=== PATIENT | male | born 1935 | race Caucasian/White ===

== ENCOUNTER 2017-09-05 16:02 | Emergency (ER) | payer MEDICARE, OTHER, SELFPAY ==
[2017-09-05 16:03] VITALS: BP 126/93; PULSE 141; RESP 32; TEMP 37.7; O2SAT 96; BMI 21.7
--- NOTE | 2017-09-05 16:10 | XR_ITS ---
XR chest portable HISTORY: Shortness of air ITS.REASON: soa ORDERING PHYSICIAN: Irma Lopez MD PATIENT AGE: 82 years COMPARISON: None available FINDINGS: The exam is over penetrated with central aspect of the lungs not adequately evaluated. Examination may be repeated at no additional charge if clinically warranted. The peripheral lung castaneda are unremarkable. The heart size is unremarkable and no acute bony anomalies are apparent. IMPRESSION: Limited exam with overpenetration of the central lung castaneda as described above. Recommend repeat exam if the patient has not had a follow-up elsewhere.
--- NOTE | 2017-09-05 16:23 | [facility].EDSOB ---
ED Disposition Clinical Impression: Leucocytosis, Diarrhea, Tachycardia, Dehydration, UTI (urinary tract infection) Disposition: Xfer Short-Term Hosp Condition on Discharge: Fair Additional Instructions: Discussed with the patient and his daughter the need for admission multiple time, seems to have hard time understanding. I asked the daughter for assistance. - Critical Care Critical Care Time: No Attestation: On , the high probability of a clinically significant, sudden or life threatening deterioration of the following system(s) required my full and direct attention, intervention and personal management. The time I documented below is in addition to time spent performing reported procedures but includes the following listed in this critical care notation. Medical Decision Making - Medical Records Medical records reviewed: Yes: I reviewed the patient's medical records. Vital Signs: 09/05/17 16:03 09/05/17 17:05 Temperature 99.8 F H Temperature Source Oral Pulse Rate 130 H Pulse Rate [Right Brachial] 141 H Respiratory Rate 32 H Blood Pressure [Right Arm] 126/93 Blood Pressure Mean [Right Arm] 104 Blood Pressure Source [Right Arm] Automatic Cuff 02 Sat by Pulse Oximetry 96 98 Oxygen Delivery Method Room Air Nasal Cannula Oxygen Flow Rate (LPM) 2 - Lab Data Lab Results 09/05/17 16:13: Specimen Source Right radial, O2 % Room air, ABG pH 7.48 H, ABG pCO2 28.7 L, ABG pO2 63.2 L, ABG HCO3 20.7 L, ABG Total CO2 21.6 L, ABG O2 Saturation 94, ABG Base Excess -2.9 L, Usman Test Acceptable 09/05/17 16:15: WBC 19.2 H, RBC 4.48 L, Hgb 14.8, Hct 45.9, MCV 102.5 H, MCH 33.1 H, MCHC 32.3, RDW 12.7, Plt Count 289, MPV 7.7, Neut % (Auto) 90.9 H, Lymph % (Auto) 3.4 L, [place] % (Auto) 4.0, Eos % (Auto) 1.5, Baso % (Auto) 0.3, Neut # (Auto) 17.4 H, Lymph # (Auto) 0.6 L, [place] # (Auto) 0.8, Eos # (Auto) 0.3, Baso # (Auto) 0.1, Total Counted 100, Neutrophils % (Manual) 91 H, Lymphocytes % (Manual) 4 L, Monocytes % (Manual) 2, Eosinophils % (Manual) 2, Basophils % (Manual) 1.0, Platelet Estimate Normal, Macrocytosis 1+ 09/05/17 16:15: Sodium 135 L, Potassium 4.3, Chloride 100, Carbon Dioxide 28, Anion Gap 11.3, BUN 18, Creatinine 0.93, Estimated Creat Clear 60, Estimated GFR 78, Est GFR ( Amer) 94, Glucose 136 H, Calcium 8.2 L, Total Bilirubin 0.6, AST 19, ALT 25, Alkaline Phosphatase 53, Total Creatine Kinase 44, CK-MB (CK-2) 0.6, CK-MB (CK-2) Rel Index 1.4, Troponin I 0.07 H, Total Protein 6.8, Albumin 3.6, Globulin 3.2, Albumin/Globulin Ratio 1.1 09/05/17 16:15: Lactic Acid 1.9 09/05/17 16:15: Influenza Type A Ag Negative, Influenza Type B Ag Negative 09/05/17 16:15: B-Natriuretic Peptide 32 09/05/17 16:15: Magnesium 1.6 09/05/17 19:03: Urine Color Yellow, Urine Appearance Cloudy, Urine pH 6.0, Ur Specific [place] <= 1.005, Urine Protein Negative, Urine Glucose (UA) Negative, Urine Ketones Negative, Urine Blood 2+, Urine Nitrate Positive, Urine Bilirubin Negative, Urine Urobilinogen 0.2, Ur Leukocyte Esterase 3+ A, Urine RBC 10-20, Urine WBC Tntc, Urine Bacteria 2+ Result diagrams: 09/05/17 16:15 09/05/17 16:15 Orders (Tests/Meds): ED MEDICATIONS Generic Name Dose Route Start Last Admin Trade Name Freq PRN Reason Stop Dose Admin Levofloxacin/Dextrose 750 mg in 150 mls @ 100 mls/hr 09/05/17 18:00 Levofloxacin 750mg/150ml Premix IV 10/05/17 17:59 Q24H [facility] Protocol Discontinued Medications Generic Name Dose Route Start Last Admin Trade Name Freq PRN Reason Stop Dose Admin Sodium Chloride 1,000 mls @ 999 mls/hr 09/05/17 16:30 09/05/17 16:32 Sod Chloride 0.9% 1000ml Bag IV 09/05/17 17:30 999 mls/hr .[id number] [facility] Administration ORDERS Category Date Time Status XR chest portable Stat Exams 09/05/17 16:10 Taken Diarrhea Panel, PCR Stat Lab 09/05/17 16:26 Ordered Blood Culture Stat Micro 09/05/17 16:13 Received Urine Culture Stat Micro 09/05/17 19:03 Received -
--- NOTE | 2017-09-05 16:27 | ED_ITS ---
ED Disposition Clinical Impression: Leucocytosis, Diarrhea, Tachycardia, Dehydration, UTI (urinary tract infection) Disposition: Xfer Short-Term Hosp Condition on Discharge: Fair Additional Instructions: Discussed with the patient and his daughter the need for admission multiple time , seems to have hard time understanding. I asked the daughter for assistance. - Critical Care Critical Care Time: No Attestation: On , the high probability of a clinically significant, sudden or life threatening deterioration of the following system(s) required my full and direct attention, intervention and personal management. The time I documented below is in addition to time spent performing reported procedures but includes the following listed in this critical care notation. Medical Decision Making - Medical Records Medical records reviewed: Yes: I reviewed the patient's medical records. Vital Signs: 09/05/17 16:03 09/05/17 17:05 Temperature 99.8 F H Temperature Source Oral Pulse Rate 130 H Pulse Rate [Right Brachial] 141 H Respiratory Rate 32 H Blood Pressure [Right Arm] 126/93 Blood Pressure Mean [Right Arm] 104 Blood Pressure Source [Right Arm] Automatic Cuff 02 Sat by Pulse Oximetry 96 98 Oxygen Delivery Method Room Air Nasal Cannula Oxygen Flow Rate (LPM) 2 - Lab Data Lab Results 09/05/17 16:13: Specimen Source Right radial, O2 % Room air, ABG pH 7.48 H, ABG pCO2 28.7 L, ABG pO2 63.2 L, ABG HCO3 20.7 L, ABG Total CO2 21.6 L, ABG O2 Saturation 94, ABG Base Excess -2.9 L, Usman Test Acceptable 09/05/17 16:15: WBC 19.2 H, RBC 4.48 L, Hgb 14.8, Hct 45.9, MCV 102.5 H, MCH 33.1 H, MCHC 32.3, RDW 12.7, Plt Count 289, MPV 7.7, Neut % (Auto) 90.9 H, Lymph % (Auto) 3.4 L, [place] % (Auto) 4.0, Eos % (Auto) 1.5, Baso % (Auto) 0.3, Neut # (Auto) 17.4 H, Lymph # (Auto) 0.6 L, [place] # (Auto) 0.8, Eos # (Auto) 0.3 , Baso # (Auto) 0.1, Total Counted 100, Neutrophils % (Manual) 91 H, Lymphocytes % (Manual) 4 L, Monocytes % (Manual) 2, Eosinophils % (Manual) 2, Basophils % (Manual) 1.0, Platelet Estimate Normal, Macrocytosis 1+ 09/05/17 16:15: Sodium 135 L, Potassium 4.3, Chloride 100, Carbon Dioxide 28, Anion Gap 11.3, BUN 18, Creatinine 0.93, Estimated Creat Clear 60, Estimated GFR 78, Est GFR ( Amer) 94, Glucose 136 H, Calcium 8.2 L, Total Bilirubin 0.6, AST 19, ALT 25, Alkaline Phosphatase 53, Total Creatine Kinase 44 , CK-MB (CK-2) 0.6, CK-MB (CK-2) Rel Index 1.4, Troponin I 0.07 H, Total Protein 6.8, Albumin 3.6, Globulin 3.2, Albumin/Globulin Ratio 1.1 09/05/17 16:15: Lactic Acid 1.9 09/05/17 16:15: Influenza Type A Ag Negative, Influenza Type B Ag Negative 09/05/17 16:15: B-Natriuretic Peptide 32 09/05/17 16:15: Magnesium 1.6 09/05/17 19:03: Urine Color Yellow, Urine Appearance Cloudy, Urine pH 6.0, Ur Specific [place] <= 1.005, Urine Protein Negative, Urine Glucose (UA) Negative, Urine Ketones Negative, Urine Blood 2+, Urine Nitrate Positive, Urine Bilirubin Negative, Urine Urobilinogen 0.2, Ur Leukocyte Esterase 3+ A, Urine RBC 10-20, Urine WBC Tntc, Urine Bacteria 2+ Result diagrams: 09/05/17 16:15 09/05/17 16:15 Orders (Tests/Meds): ED MEDICATIONS Generic Name Dose Route Start Last Admin Trade Name Freq PRN Reason Stop Dose Admin Levofloxacin/Dextrose 750 mg in 150 mls @ 100 mls/hr 09/05/17 18:00 Levofloxacin 750mg/150ml Premix IV 10/05/17 17:59 Q24H [facility] Protocol Discontinued Medications
[2017-09-05 16:29] LABS: Basophils # 0.1 K/mm3 (0-0.2); Basophils % 0.3 % (0.1-2.0); Eosinophils # 0.3 K/mm3 (0.0-0.4); Eosinophils % 1.5 % (0.1-12.0); Hematocrit 45.9 % (42.0-52.0); Hemoglobin 14.8 g/dL (14.1-18.0); Lymphocytes # 0.6 K/mm3 (0.7-4.5); Lymphocytes % 3.4 K/mm3 (10-50); Mean Corpuscular HGB Conc 32.3 g/dL (31.8-35.4); Mean Corpuscular Hemoglobin 33.1 pg (27.0-31.2); Mean Corpuscular Volume 102.5 fl (80-94); Mean Platelet Volume 7.7 fl (7.4-10.4); Monocytes # 0.8 K/mm3 (0.1-1.0); Neutrophils # 17.4 K/mm3 (1.8-7.8); Neutrophils % 90.9 % (37.0-80.0); Platelet Count 289 K/mm3 (142-424); Red Blood Count 4.48 M/mm3 (4.60-6.20); Red Cell Distribution Width 12.7 % (11.5-17.5); White Blood Count 19.2 K/mm3 (4.8-10.8)
[2017-09-05 16:33] LABS: MANUAL DIFFERENTIAL MANUAL DIFFERENTIAL (MANUAL DIFF)
[2017-09-05 16:43] LABS: Lactic Acid 1.9 mmol/L (0.4-2.0)
[2017-09-05 17:05] VITALS: PULSE 120; PULSE 130; O2SAT 98
[2017-09-05 17:13] LABS: Alanine Aminotransferase 25 U/L (12-78); Albumin Level 3.6 gm/dL (3.4-5.0); Albumin/Globulin Ratio 1.1 (1.1-1.8); Alkaline Phosphatase 53 U/L (46-116); Anion Gap 11.3 mEq/L (5-15); Aspartate Amino Transferase 19 U/L (15-37); Bilirubin,Total 0.6 mg/dL (0.2-1.0); Blood Urea Nitrogen 18 mg/dL (7-18); CKMB Relative Index 1.4 U/L (0-4.0); Calcium 8.2 mg/dL (8.5-10.1); Carbon Dioxide 28 mmol/L (21.0-32.0); Chloride 100 mmol/L (98-107); Creatine Kinase 44 U/L (39-308); Creatine Kinase MB 0.6 mg/ml (0.0-3.6); Creatinine Clearance Estimated 60 mL/min (0-300); Creatinine,Serum 0.93 mg/dL (0.70-1.30); Estimated Glomerular Filt Rate 78 ml/min (>60); GFR (African American) 94 ML/MIN (>60); Globulin 3.2 gm/dl (1.3-3.2); Glucose 136 mg/dL (74-106); Potassium 4.3 mmoL/L (3.5-5.1); Sodium 135 mmol/L (136-145); Total Protein,Serum 6.8 gm/dL (6.4-8.2); Troponin I 0.07 ng/ml (0.00-0.06)
[2017-09-05 17:18] LABS: ABG Base Excess -2.9 mmol/L (-2.4-2.3); ABG HCO3 20.7 mmhg (22.0-26.0); ABG Oxygen Saturation 94 % (90-100); ABG PCO2 28.7 mmhg (35.0-45.0); ABG PH 7.48 mmol/L (7.35-7.45); ABG PO2 63.2 mmhg (80-100); ABG TCO2 21.6 mmhg (23-27)
[2017-09-05 17:25] LABS: Allen's Test Acceptable; Oxygen ROOM AIR %; Source Right Radial
[2017-09-05 17:57] LABS: Eosinophils % 2 % (0-3); Lymphocytes % 4 % (10-50); Macrocytosis 1+; Monocytes % 2 % (2-9); Neutrophils % 91 % (42-76); Platelet Estimate Normal; Total Cells Counted 100
[2017-09-05 18:08] LABS: Magnesium 1.6 mg/dL (1.4-2.2)
[2017-09-05 19:03] VITALS: PULSE 71; PULSE 78
[2017-09-05 19:38] LABS: Microscopic, Urine URINE MICROSCOPIC (MICROSCOPIC)
[2017-09-05 19:42] LABS: Appearance,Urine CLOUDY (Clear); Bilirubin,Urine Negative (Negative); Blood, Urine 2+ (Negative); Color,Urine YELLOW (Yellow); Glucose,Urine (UA) Negative (Negative); Ketones,Urine Negative (Negative); Leukocyte Esterase,Urine 3+ (Negative); Nitrate,Urine POSITIVE (Negative); Protein,Urine Negative (Negative); Specific Gravity, Urine <= 1.005 (1.005-1.030); Urobilinogen,Urine 0.2 EU/dl (0.2)
[2017-09-05 19:44] LABS: Bacteria,Urine 2+ /lpf; WBC,Urine TNTC #/hpf (0-3)
--- NOTE | 2017-09-05 20:24 | PC.NURSE ---
Levofloxacin hanging and complete. Pulled on preivious shift.
--- NOTE | 2017-09-05 20:25 | PC.NURSE ---
Pt reports he just took his home medication
[2017-09-05 20:37] VITALS: BP 118/67; PULSE 125; RESP 18; O2SAT 98
== END 2017-09-05 20:40 | disposition short-term general hospital (02) ==
PROVIDERS: Emergency Provider Emergency Medicine
DX: N39.0 Urinary tract infection, site not specified (principal); D72.829 Elevated white blood cell count, unspecified; R19.7 Diarrhea, unspecified; R00.0 Tachycardia, unspecified; E86.0 Dehydration; J44.9 Chronic obstructive pulmonary disease, unspecified
CPT/HCPCS: 71045; 80053; 81001; 82550; 82553; 82803; 83605; 83735; 83880; 84484; 85007; 85025; 87040; 87086; 87275; 87276; 93005; 96365; 96375; 99284